=== PATIENT | male | born 1955 | race Two or more races ===

== ENCOUNTER 2018-02-16 17:04 | Inpatient (IN) | payer SELFPAY ==
[2018-02-16] MEDS ORDERED: Pneumococcal Polyvalent-23 Vaccine 0.5 ML SDV IM ONE (17:38)
[2018-02-16 19:18] LABS: CHLORIDE,CL 104 mmol/L (98-107); SODIUM,NA 137 mmol/L (136-148)
[2018-02-16] MEDS ORDERED: Acetaminophen 325 MG Tab PO PRN (19:42)
--- NOTE | 2018-02-16 19:57 | PCM.HP ---
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 He was directly admitted from [facility] after being seen in clinic by Dr. Allred for ampuation of necrotic left 2nd toe. - Related Data Home Medications: Home Meds Amoxicillin/Clavulanate K [Augmentin 500-125 MG] 1 tab PO Q12H 02/16/18 [History ] Aspirin [Halfprin] 81 mg PO DAILY 02/16/18 [History] Cetirizine [ZyrTEC] 10 mg PO DAILY 02/16/18 [History] Fish Oil/[place]-3 Fatty Acids [Fish Oil 1,000 MG] 1 cap PO TID 02/16/18 [History] Gabapentin [Neurontin] 800 mg PO QID 02/16/18 [History] Gluc HCl/Csa/Brian Hy/Hyalur Ac [Glucosamine Chondroitin] 1 each PO BID 02/16/18 [History] Ibuprofen 800 mg PO Q8H 02/16/18 [History] Insulin Aspart [Novolog] 60 unit SUBCUT DAILY 02/16/18 [History] Insulin Detemir [Levemir Flextouch] 22 units SUBCUT DAILY 02/16/18 [History] Liraglutide [Victoza] 0.2 ml SUBCUT DAILY 02/16/18 [History] Losartan [Cozaar] 50 mg PO DAILY 02/16/18 [History] Mupirocin Oint [Bactroban Oint] 1 applic TP TID 02/16/18 [History] atorvaSTATin [Lipitor] 20 mg PO DAILY 02/16/18 [History] Past Medical History Cardiovascular History: Reports: Hypertension Gastrointestinal History: Reports: Cirrhosis Musculoskeletal History: Reports: Amputation, Other (See Below) Other Musculoskeletal History: below right knee amputation Psychiatric History: Reports: Depression Endocrine/Metabolic History: Reports: Diabetes, Type II - Past Surgical History Musculoskeletal Surgical History: Reports: Amputation Social & Family History - Family History Oncologic: Reports: Liver, Lung - Tobacco Use Smoking Status *Q: Former Smoker Packs/Tins Daily: 1 Used Tobacco, but Quit: Yes Month/Year Tobacco Last Used: 2013 Tobacco Use Comment: quit smoking 4 years ago Second Hand Smoke Exposure: Yes - Caffeine Use Caffeine Use: Reports: Coffee - Recreational Drug Use Recreational Drug Use: No H&P Review of Systems - Review of Systems: Review Of Systems: ROS reveals no pertinent complaints other than HPI. Exam - Exam Exam: See Below - Vital Signs Vital Signs: Last Vital Signs Temp 36.9 C 02/16/18 17:15 Pulse 84 02/16/18 17:15 Resp 16 02/16/18 17:15 BP 156/94 H 02/16/18 17:15 Pulse Ox 97 02/16/18 17:15 Weight: 110.847 kg - Exam General: Alert, Oriented HEENT: Mucosa Moist & [place] Lungs: Clear to Auscultation, Normal Respiratory Effort Cardiovascular: Regular Rate, Regular Rhythm GI/Abdominal Exam: Soft, Non-Tender Extremities: Other (dry black left 2nd toe, no areas of purulence) Neurological: No: Focal Deficit - Patient Data Lab Results Last 24 hrs: Laboratory Results - last 24 hr 02/16/18 02/16/18 Range/Units 18:41 18:41 WBC 9.53 (4.0-11.0) K/uL RBC 4.71 (4.50-5.90) M/uL Hgb 13.5 (13.0-17.0) g/dL Hct 39.6 (38.0-50.0) % MCV 84.1 (80.0-98.0) fL MCH 28.7 (27.0-32.0) pg MCHC 34.1 (31.0-37.0) g/dL RDW Std Deviation 43.0 (28.0-62.0) fl RDW Coeff of Dino 14 (11.0-15.0) % Plt Count 224 (150-400) K/uL MPV 9.30 (7.40-12.00) fL Neut % (Auto) 70.3 (48.0-80.0) % Lymph % (Auto) 18.8 (16.0-40.0) % [place] % (Auto) 8.5 (0.0-15.0) % Eos % (Auto) 2.1 (0.0-7.0) % Baso % (Auto) 0.3 (0.0-1.5) % Neut # (Auto) 6.7 H (1.4-5.7) K/uL Lymph # (Auto) 1.8 (0.6-2.4) K/uL [place] # (Auto) 0.8 (0.0-0.8) K/uL Eos # (Auto) 0.2 (0.0-0.7) K/uL Baso # (Auto) 0.0 (0.0-0.1) K/uL Nucleated RBC % 0.0 /100WBC Nucleated RBCs # 0 K/uL Sodium 137 (136-148) mmol/L Potassium 4.1 (3.5-5.1) mmol/L Chloride 104 (98-107) mmol/L Carbon Dioxide 24.2 (21.0-32.0) mmol/L BUN 21 H (7.0-18.0) mg/dL Creatinine 1.2 (0.8-1.3) mg/dL Est Cr Clr Drug Dosing 66.24 mL/min Estimated GFR (MDRD) > 60.0 ml/min Glucose 180 H (74-106) mg/dL Calcium 8.4 L (8.5-10.1) mg/dL Total Bilirubin 0.6 (0.2-1.0) mg/dL AST 18 (15-37) IU/L ALT 25 (14-63) IU/L Alkaline Phosphatase 136 H (46-116) U/L Total Protein 7.3 (6.4-8.2) g/dL Albumin 2.9 L (3.4-5.0) g/dL Globulin 4.4 H (2.0-3.5) g/dL Albumin/Globulin Ratio 0.7 L (1.3-2.8) Result Diagrams: 02/16/18 18:41 02/16/18 18:41 Problem List Initiated/Reviewed/Updated: Yes Orders Last 24hrs: Active Orders 24 hr Category Date Time Status Patient Status [ADT] Routine ADT 02/16/18 19:42 Ordered Accu Check [Blood Glucose Check, Bedside] [RC] TIDAC Care 02/16/18 17:41 Active Oxygen Therapy [RC] PRN Care 02/16/18 19:42 Ordered Up ad Yennifer [RC] ASDIRECTED Care 02/16/18 19:42 Ordered VTE/DVT Education [RC] PER UNIT ROUTINE Care 02/16/18 19:42 Ordered Vital Signs [RC] Q4H Care 02/16/18 19:42 Ordered [place] Diet [DIET] Diet 02/17/18 Dinner Active Nothing per Oral After Midnight Diet [DIET] Diet 02/16/18 Dinner Ordered Foot Comp Min 3V Lt [CR] Stat Exams 02/16/18 19:15 Ordered BASIC METABOLIC PANEL,BMP [CHEM] AM Lab 02/17/18 05:11 Ordered CBC WITH AUTO DIFF [HEME] AM Lab 02/17/18 05:11 Ordered Acetaminophen [Tylenol] Med 02/16/18 19:42 Ordered 650 mg PO Q4H PRN Aspirin [Halfprin] Med 02/17/18 09:00 Ordered 81 mg PO DAILY Gabapentin [Neurontin] Med 02/17/18 00:00 Ordered 800 mg PO QID Heparin Sodium Med 02/16/18 19:45 Ordered 5,000 units SUBCUT Q8H Insulin Aspart [NovoLOG] Med 02/17/18 07:30 Ordered See Protocol SUBCUT TIDAC Insulin Detemir [Levemir] Med 02/17/18 09:00 Ordered 11 unit SUBCUT DAILY Losartan [Cozaar] Med 02/17/18 09:00 Ordered 50 mg PO DAILY Vancomycin Pharmacy to Dose [Pharmacy to Dose - Med 02/16/18 19:45 Ordered Vancomycin] 1 dose .XX ASDIRECTED atorvaSTATin [Lipitor] Med 02/17/18 09:00 Ordered 20 mg PO DAILY Sequential Compression Device [OM.PC] Per Unit Routine Oth 02/16/18 19:42 Ordered Resuscitation Status Routine Resus Stat 02/16/18 19:42 Ordered Medication Orders Acetaminophen (Tylenol) 650 mg PO Q4H PRN PRN Reason: Pain (Mild 1-3)/fever Aspirin (Halfprin) 81 mg PO DAILY JULISSA Atorvastatin Calcium (Lipitor) 20 mg PO DAILY JULISSA Gabapentin (Neurontin) 800 mg PO QID JULISSA Heparin Sodium (Porcine) (Heparin Sodium) 5,000 units SUBCUT Q8H JULISSA Insulin Aspart (Novolog) 0 unit SUBCUT TIDAC JULISSA; Protocol Insulin Detemir (Levemir) 11 unit SUBCUT DAILY JULISSA Losartan Potassium (Cozaar) 50 mg PO DAILY JULISSA Vancomycin HCl (Pharmacy To Dose - Vancomycin) 1 dose .XX ASDIRECTED JULISSA Assessment/Plan Comment:: 62 yo male with diabetic foot, admitted for amputation of left 2nd toe. Will treat with vancomycin. Will decrease levemir dose by half tomorrow as he will be NPO for surgery.
[2018-02-16] MEDS ORDERED: Vancomycin 1.5 GM in Sodium Chloride 0.9% 500 ML IV SCH (20:00)
--- NOTE | 2018-02-16 20:26 | PCM.CONS ---
H&P History of Present Illness - General Date of Service: 02/16/18 Admit Problem/Dx: Admission Diagnosis/Problem Admission Diagnosis/Problem Diabetic foot Source of Information: Patient History Limitations: Reports: No Limitations - History of Present Illness Onset of Symptoms: Reports: Gradual Duration of Symptoms: Reports: Chronic Location: Reports: Lower Extremity, Left Severity: Severe - Related Data Allergies/Adverse Reactions: Allergies Allergy/AdvReac Type Severity Reaction Status Date / Time No Known Allergies Allergy Verified 02/16/18 20:08 Home Medications: Home Meds Amoxicillin/Clavulanate K [Augmentin 500-125 MG] 1 tab PO Q12H 02/16/18 [History ] Aspirin [Halfprin] 81 mg PO DAILY 02/16/18 [History] Cetirizine [ZyrTEC] 10 mg PO DAILY 02/16/18 [History] Fish Oil/[place]-3 Fatty Acids [Fish Oil 1,000 MG] 1 cap PO TID 02/16/18 [History] Gabapentin [Neurontin] 800 mg PO QID 02/16/18 [History] Gluc HCl/Csa/Brian Hy/Hyalur Ac [Glucosamine Chondroitin] 1 each PO BID 02/16/18 [History] Ibuprofen 800 mg PO Q8H 02/16/18 [History] Insulin Aspart [Novolog] 60 unit SUBCUT DAILY 02/16/18 [History] Insulin Detemir [Levemir Flextouch] 20 units SUBCUT DAILY 02/16/18 [History] Liraglutide [Victoza] 0.2 ml SUBCUT DAILY 02/16/18 [History] Losartan [Cozaar] 50 mg PO DAILY 02/16/18 [History] Mupirocin Oint [Bactroban Oint] 1 applic TP TID 02/16/18 [History] atorvaSTATin [Lipitor] 20 mg PO DAILY 02/16/18 [History] Past Medical History Cardiovascular History: Reports: Hypertension Gastrointestinal History: Reports: Cirrhosis Musculoskeletal History: Reports: Amputation, Other (See Below) Other Musculoskeletal History: below right knee amputation Psychiatric History: Reports: Depression Endocrine/Metabolic History: Reports: Diabetes, Type II - Past Surgical History Musculoskeletal Surgical History: Reports: Amputation Social & Family History - Family History Oncologic: Reports: Liver, Lung - Tobacco Use Smoking Status *Q: Former Smoker Packs/Tins Daily: 1 Used Tobacco, but Quit: Yes Month/Year Tobacco Last Used: 2013 Tobacco Use Comment: quit smoking 4 years ago Second Hand Smoke Exposure: Yes - Caffeine Use Caffeine Use: Reports: Coffee - Recreational Drug Use Recreational Drug Use: No H&P Review of Systems - Review of Systems: Review Of Systems: See Below General: Reports: No Symptoms HEENT: Reports: No Symptoms Pulmonary: Reports: No Symptoms Cardiovascular: Reports: No Symptoms Gastrointestinal: Reports: No Symptoms Genitourinary: Reports: No Symptoms Musculoskeletal: Reports: No Symptoms Skin: Reports: No Symptoms Psychiatric: Reports: No Symptoms Neurological: Reports: No Symptoms Hematologic/Lymphatic: Reports: No Symptoms Immunologic: Reports: No Symptoms Exam - Exam Exam: See Below - Vital Signs Vital Signs: Last Vital Signs Temp 36.4 C 02/16/18 19:42 Pulse 81 02/16/18 19:42 Resp 20 02/16/18 19:42 BP 152/71 H 02/16/18 19:42 Pulse Ox 93 L 02/16/18 19:42 Weight: 110.847 kg - Exam General: Alert, Oriented, Cooperative Peripheral Pulses: 1+: Posterior Tibial (L), Dorsalis Pedis (L) Skin: Warm, Other (necrotic left 2nd toe distal aspect with severe malodor) - Patient Data Lab Results Last 24 hrs: Laboratory Results - last 24 hr 02/16/18 02/16/18 Range/Units 18:41 18:41 WBC 9.53 (4.0-11.0) K/uL RBC 4.71 (4.50-5.90) M/uL Hgb 13.5 (13.0-17.0) g/dL Hct 39.6 (38.0-50.0) % MCV 84.1 (80.0-98.0) fL MCH 28.7 (27.0-32.0) pg MCHC 34.1 (31.0-37.0) g/dL RDW Std Deviation 43.0 (28.0-62.0) fl RDW Coeff of Dino 14 (11.0-15.0) % Plt Count 224 (150-400) K/uL MPV 9.30 (7.40-12.00) fL Neut % (Auto) 70.3 (48.0-80.0) % Lymph % (Auto) 18.8 (16.0-40.0) % [place] % (Auto) 8.5 (0.0-15.0) % Eos % (Auto) 2.1 (0.0-7.0) % Baso % (Auto) 0.3 (0.0-1.5) % Neut # (Auto) 6.7 H (1.4-5.7) K/uL Lymph # (Auto) 1.8 (0.6-2.4) K/uL [place] # (Auto) 0.8 (0.0-0.8) K/uL Eos # (Auto) 0.2 (0.0-0.7) K/uL Baso # (Auto) 0.0 (0.0-0.1) K/uL Nucleated RBC % 0.0 /100WBC Nucleated RBCs # 0 K/uL Sodium 137 (136-148) mmol/L Potassium 4.1 (3.5-5.1) mmol/L Chloride 104 (98-107) mmol/L Carbon Dioxide 24.2 (21.0-32.0) mmol/L BUN 21 H (7.0-18.0) mg/dL Creatinine 1.2 (0.8-1.3) mg/dL Est Cr Clr Drug Dosing 66.24 mL/min Estimated GFR (MDRD) > 60.0 ml/min Glucose 180 H (74-106) mg/dL Calcium 8.4 L (8.5-10.1) mg/dL Total Bilirubin 0.6 (0.2-1.0) mg/dL AST 18 (15-37) IU/L ALT 25 (14-63) IU/L Alkaline Phosphatase 136 H (46-116) U/L Total Protein 7.3 (6.4-8.2) g/dL Albumin 2.9 L (3.4-5.0) g/dL Globulin 4.4 H (2.0-3.5) g/dL Albumin/Globulin Ratio 0.7 L (1.3-2.8) Result Diagrams: 02/16/18 18:41 02/16/18 18:41 Consult PN Assessment/Plan (1) Gangrene associated with type 2 diabetes mellitus SNOMED Code(s): 519678722, 024453556 Code(s): E11.52 - TYPE 2 DIABETES W DIABETIC PERIPHERAL ANGIOPATHY W GANGRENE Current Visit: Yes Assessment:: Left 2nd toe with necrotic changes and malodor - x-ray findings: I note erosion of distal phalanx of 2nd toe consistent with osteomyelitis. Problem List Initiated/Reviewed/Updated: Yes My Orders Last 24 Hours: My Active Orders 02/16/18 19:15 Foot Comp Min 3V Lt [CR] Stat 02/16/18 20:16 Verify Patient Consent Obtain [RC] ASDIRECTED Plan: 1. Surgery discussed with anesthesia and scheduled for tomorrow at noon 2. NPO past midnight 3. X-rays taken and viewed 4. Surgery will be amputation of 2nd toe left foot. Amputation either to PIPJ or to MPJ, to be decided intraoperatively. 5. Will follow.
--- NOTE | 2018-02-16 21:08 | PCM.PREANE ---
Preanesthetic Assessment - Anesthesia/Transfusion/Family Hx Anesthesia History: Prior Anesthesia Without Reaction Family History of Anesthesia Reaction: No Transfusion History: Prior Transfusion Without Reaction - Review of Systems General: No Symptoms Pulmonary: No Symptoms Cardiovascular: No Symptoms Gastrointestinal: No Symptoms Neurological: No Symptoms Other: Reports: None - Physical Assessment O2 Sat by Pulse Oximetry: 93 Respiratory Rate: 20 Vital Signs: Last Vital Signs Temp 97.6 F 02/16/18 19:42 Pulse 81 02/16/18 19:42 Resp 20 02/16/18 19:42 BP 152/71 H 02/16/18 19:42 Pulse Ox 93 L 02/16/18 19:42 Height: 5 ft 11 in Weight: 110.847 kg ASA Class: 4 Mental Status: Alert & Oriented x3 Airway Class: Mallampati = 2 Dentition: Reports: Normal Dentition Thyro-Mental Finger Breadths: 3 Mouth Opening Finger Breadths: 3 ROM/Head Extension: Full Lungs: Decreased Breath Sounds Cardiovascular: Regular Rate, Regular Rhythm, Other (Distant heart sounds) - Lab Values: Laboratory Last Values WBC 9.53 K/uL (4.0-11.0) 02/16/18 18:41 RBC 4.71 M/uL (4.50-5.90) 02/16/18 18:41 Hgb 13.5 g/dL (13.0-17.0) 02/16/18 18:41 Hct 39.6 % (38.0-50.0) 02/16/18 18:41 MCV 84.1 fL (80.0-98.0) 02/16/18 18:41 MCH 28.7 pg (27.0-32.0) 02/16/18 18:41 MCHC 34.1 g/dL (31.0-37.0) 02/16/18 18:41 RDW Std Deviation 43.0 fl (28.0-62.0) 02/16/18 18:41 RDW Coeff of Dino 14 % (11.0-15.0) 02/16/18 18:41 Plt Count 224 K/uL (150-400) 02/16/18 18:41 MPV 9.30 fL (7.40-12.00) 02/16/18 18:41 Neut % (Auto) 70.3 % (48.0-80.0) 02/16/18 18:41 Lymph % (Auto) 18.8 % (16.0-40.0) 02/16/18 18:41 [place] % (Auto) 8.5 % (0.0-15.0) 02/16/18 18:41 Eos % (Auto) 2.1 % (0.0-7.0) 02/16/18 18:41 Baso % (Auto) 0.3 % (0.0-1.5) 02/16/18 18:41 Neut # (Auto) 6.7 K/uL (1.4-5.7) H 02/16/18 18:41 Lymph # (Auto) 1.8 K/uL (0.6-2.4) 02/16/18 18:41 [place] # (Auto) 0.8 K/uL (0.0-0.8) 02/16/18 18:41 Eos # (Auto) 0.2 K/uL (0.0-0.7) 02/16/18 18:41 Baso # (Auto) 0.0 K/uL (0.0-0.1) 02/16/18 18:41 Nucleated RBC % 0.0 /100WBC 02/16/18 18:41 Nucleated RBCs # 0 K/uL 02/16/18 18:41 Sodium 137 mmol/L (136-148) 02/16/18 18:41 Potassium 4.1 mmol/L (3.5-5.1) 02/16/18 18:41 Chloride 104 mmol/L (98-107) 02/16/18 18:41 Carbon Dioxide 24.2 mmol/L (21.0-32.0) 02/16/18 18:41 BUN 21 mg/dL (7.0-18.0) H 02/16/18 18:41 Creatinine 1.2 mg/dL (0.8-1.3) 02/16/18 18:41 Est Cr Clr Drug Dosing 66.24 mL/min 02/16/18 18:41 Estimated GFR (MDRD) > 60.0 ml/min 02/16/18 18:41 Glucose 180 mg/dL (74-106) H 02/16/18 18:41 POC Glucose 169 mg/dL (60-110) H 02/16/18 17:43 Calcium 8.4 mg/dL (8.5-10.1) L 02/16/18 18:41 Total Bilirubin 0.6 mg/dL (0.2-1.0) 02/16/18 18:41 AST 18 IU/L (15-37) 02/16/18 18:41 ALT 25 IU/L (14-63) 02/16/18 18:41 Alkaline Phosphatase 136 U/L (46-116) H 02/16/18 18:41 Total Protein 7.3 g/dL (6.4-8.2) 02/16/18 18:41 Albumin 2.9 g/dL (3.4-5.0) L 02/16/18 18:41 Globulin 4.4 g/dL (2.0-3.5) H 02/16/18 18:41 Albumin/Globulin Ratio 0.7 (1.3-2.8) L 02/16/18 18:41 - Allergies Allergies/Adverse Reactions: Allergies Allergy/AdvReac Type Severity Reaction Status Date / Time No Known Allergies Allergy Verified 02/16/18 20:08 - Anesthesia Plan Free Text/Narrative:: Pt is a pleasant 62 y/o gentleman who provided the following health history on exam: - DM II - oral and insulin for treatment - HTN - PO treatment - Obesity - Previous alcoholic, denies any use in the last 18 years - + Liver cirrhosis diagnosed last year - Rt Below the knee amputation in early/mid 2016. 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 I have requested those records from [facility] for review. The patient also states he was scheduled to have another carotid U/S this week to make sure the disease in his Right carotid had not worsened. The patient may require Carotid U/S re-evaluation on this visit prior to surgery. - Last HgA1C 8.1 - 12/2017 - Diabetic Retinopathy - 02/16/2018 - EKG shows SR with abnormal R wave progression - 02/16/2018 - CXR shows no acute disease process I have spoken with Erika BAFFLE INSTALLER regarding the patients statements about his carotid U/S last year and she will re-order one for today prior to surgery. The anesthetic plan would be to have Dr Quiroga perform an ankle block and then for Anesthesia to provide light MAC anesthesia. - Acknowledgements Anesthesia Type Planned: Spinal, Regional Block, MAC Pt an Appropriate Candidate for the Planned Anesthesia: Yes Alternatives and Risks of Anesthesia Discussed w Pt/Guardian: Yes Pt/Guardian Understands and Agrees with Anesthesia Plan: Yes PreAnesthesia Questionnaire HEENT History: Reports: Hard of Hearing, Impaired Vision Cardiovascular History: Reports: Hypertension Respiratory History: Reports: Other (See Below) (Quit smoking in 2013) Gastrointestinal History: Reports: Cirrhosis Genitourinary History: Reports: None Musculoskeletal History: Reports: Amputation, Other (See Below) Other Musculoskeletal History: Rt below the knee amputation Neurological History: Reports: Neuropathy, Diabetic Psychiatric History: Reports: Depression Endocrine/Metabolic History: Reports: Diabetes, Type II, Obesity/BMI 30+ Hematologic History: Reports: None Immunologic History: Reports: None Oncologic (Cancer) History: Reports: None Dermatologic History: Reports: None - Infectious Disease History Infectious Disease History: Reports: None - Past Surgical History Musculoskeletal Surgical History: Reports: Amputation (Rt below the knee amputation) - SUBSTANCE USE Smoking Status *Q: Former Smoker Second Hand Smoke Exposure: Yes Recreational Drug Use History: No - HOME MEDS Home Medications: Home Meds Amoxicillin/Clavulanate K [Augmentin 500-125 MG] 1 tab PO Q12H 02/16/18 [History ] Aspirin [Halfprin] 81 mg PO DAILY 02/16/18 [History] Cetirizine [ZyrTEC] 10 mg PO DAILY 02/16/18 [History] Fish Oil/[place]-3 Fatty Acids [Fish Oil 1,000 MG] 1 cap PO TID 02/16/18 [History] Gabapentin [Neurontin] 800 mg PO QID 02/16/18 [History] Gluc HCl/Csa/Brian Hy/Hyalur Ac [Glucosamine Chondroitin] 1 each PO BID 02/16/18 [History] Ibuprofen 800 mg PO Q8H 02/16/18 [History] Insulin Aspart [Novolog] 60 unit SUBCUT DAILY 02/16/18 [History] Insulin Detemir [Levemir Flextouch] 20 units SUBCUT DAILY 02/16/18 [History] Liraglutide [Victoza] 0.2 ml SUBCUT DAILY 02/16/18 [History] Losartan [Cozaar] 50 mg PO DAILY 02/16/18 [History] Mupirocin Oint [Bactroban Oint] 1 applic TP TID 02/16/18 [History] atorvaSTATin [Lipitor] 20 mg PO DAILY 02/16/18 [History] - CURRENT (IN HOUSE) MEDS Current Meds: Current Medications Acetaminophen (Tylenol) 650 mg PO Q4H PRN PRN Reason: Pain (Mild 1-3)/fever Aspirin (Halfprin) 81 mg PO DAILY JULISSA Atorvastatin Calcium (Lipitor) 20 mg PO DAILY [facility] Gabapentin (Neurontin) 800 mg PO QID [facility] Heparin Sodium (Porcine) (Heparin Sodium) 5,000 units SUBCUT Q8H [facility] Vancomycin HCl 1 gm/Vancomycin HCl 500 mg/ Sodium Chloride 500 mls @ 333 mls/ hr IV Q12H [facility] Insulin Aspart (Novolog) 0 unit SUBCUT TIDAC [facility]; Protocol Insulin Detemir (Levemir) 11 unit SUBCUT DAILY [facility] Losartan Potassium (Cozaar) 50 mg PO DAILY [facility] Vancomycin HCl (Pharmacy To Dose - Vancomycin) 1 dose .XX ASDIRECTED [facility] Discontinued Medications Vancomycin HCl 1.5 gm/ Sodium (Chloride) 500 mls @ 333 mls/hr IV Q12H [facility] Last Admin: 02/16/18 21:04 Dose: Not Given Vancomycin HCl 1 gm/Vancomycin HCl 500 mg/ Sodium Chloride 500 mls @ 333 mls/ hr IV Q12H [facility] Pneumococcal Polyvalent Vaccine (Pneumovax 23) 0.5 ml IM .ONCE ONE Stop: 02/16/18 17:39
[2018-02-16] MEDS: Heparin Sodium 5,000 Units/ML Vial SUBCUT SCH (22:07)
[2018-02-16] MEDS: Gabapentin 800 MG Tab PO SCH (23:17)
[2018-02-17] MEDS: Sodium Chloride 0.9% 1,000 ML IV SCH ×3 (00:29→19:17)
[2018-02-17] MEDS: Insulin Aspart 100 Units/ML 3 ML Pen SUBCUT SCH ×4 (00:30→17:53)
[2018-02-17 05:54] LABS: CHLORIDE,CL 106 mmol/L (98-107); SODIUM,NA 138 mmol/L (136-148)
[2018-02-17] MEDS: Heparin Sodium 5,000 Units/ML Vial SUBCUT SCH ×2 (06:38→14:54)
[2018-02-17] MEDS: Gabapentin 800 MG Tab PO SCH ×4 (06:39→19:18)
[2018-02-17] MEDS ORDERED: Insulin Aspart 100 Units/ML 3 ML Pen SUBCUT SCH (07:30)
--- NOTE | 2018-02-17 09:04 | CR ---
EXAM DATE: 02/16/18 PATIENT'S AGE: 62 Patient: DANISHA VENTURA Facility: [place], [place] Site . Site : 1955 Study: XRay Extremity Left foot [id number]/2/[id number] 7:58:01 PM Ordering Physician: Renu Romero Final Report: INDICATION : Assess for osteomyelitis. TECHNIQUE: Three views. FINDINGS: Truncation of the distal tuft of the 2nd toe with soft tissue loss. Patchy lucency of the small remnant of the distal phalanx. Osteomyelitis not excluded. Mild degenerative spurring of the 1st metatarsal sesamoids. No other significant bone or joint finding in the foot. 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 Os calcis spared. Diffuse prominent atherosclerotic calcification. Dictated by Feliberto Jarrell MD @ Feb 16 2018 8:19PM (Electronic Signature) Report Signed by Proxy. CHRISTINA
--- NOTE | 2018-02-17 09:05 | CR ---
EXAM DATE: 02/16/18 PATIENT'S AGE: 62 Patient: DANISHA VENTURA Facility: [place], [place] Site . Site : 1955 Study: XRay Chest [id number]/2/[id number] 8:29:27 PM Ordering Physician: Renu Romero Final Report: Indication: Preoperative chest radiograph, diabetes, history of tobacco use Technique: Chest 1 view. Comparison: None Findings: Cardiovascular and mediastinum: Heart size and vasculature are normal in caliber and appearance. Mediastinum is within normal limits. Lungs and pleural space: Lungs are clear. No sign of infiltrate or mass. No sign of pleural effusion. No pneumothorax. Bones and soft tissues: No significant findings. Impression: No sign of acute disease. Dictated by Ida Rider MD @ Feb 16 2018 8:34PM (Electronic Signature) Report Signed by Proxy. CHRISTINA
--- NOTE | 2018-02-17 09:10 | US ---
EXAMINATION: Carotid US with claudio scale and duplex imaging. HISTORY: Carotid occlusion FINDINGS: Ultrasound examination of bilateral cervical carotid arteries was performed using claudio scale and dupl ex imaging. There is complete occlusion of left internal carotid artery proximally. Mild atheromatou s changes noted within the right internal carotid artery. Antegrade flow noted within the vertebrals . These are the peak velocities in cm per second (systole), right and left respectively, by a comma: CCA (common carotid artery) - 67, 66 ICA (internal carotid artery) - 73, 0 ECA (External carotid artery) - 76, 91 ICA/CCA systolic ratio Right - 1.1 Left - x IMPRESSION: 1. Occlusion of the proximal left internal carotid artery. 2. Mild atheromatous changes without significant stenosis noted within the right internal carotid art charlie.
[2018-02-17] MEDS: Losartan 50 MG Tab PO SCH (09:16)
[2018-02-17] MEDS: Aspirin 81 MG Tab.EC PO SCH (09:19)
[2018-02-17] MEDS: Insulin Detemir 100 Units/ML 3 ML Pen SUBCUT SCH (09:19)
[2018-02-17] MEDS: atorvaSTATin 20 MG Tab PO SCH (09:20)
--- NOTE | 2018-02-17 11:38 | PCM.PN ---
- General Info Date of Service: 02/17/18 - Review of Systems Systems Review Comment:: no new complaints. - Patient Data Vitals - Most Recent: Last Vital Signs Temp 37.1 C 02/17/18 08:00 Pulse 67 02/17/18 08:00 Resp 16 02/17/18 08:00 BP 173/84 H 02/17/18 09:16 Pulse Ox 95 02/17/18 08:00 Weight - Most Recent: 110.847 kg I&O - Last 24 Hours: Intake & Output 02/16/18 02/17/18 02/17/18 22:59 06:59 14:59 Intake Total 500 Output Total 300 Balance 200 Lab Results Last 24 Hours: Laboratory Results - last 24 hr 02/16/18 02/16/18 02/16/18 Range/Units 17:43 18:41 18:41 WBC 9.53 (4.0-11.0) K/uL RBC 4.71 (4.50-5.90) M/uL Hgb 13.5 (13.0-17.0) g/dL Hct 39.6 (38.0-50.0) % MCV 84.1 (80.0-98.0) fL MCH 28.7 (27.0-32.0) pg MCHC 34.1 (31.0-37.0) g/dL RDW Std Deviation 43.0 (28.0-62.0) fl RDW Coeff of Dino 14 (11.0-15.0) % Plt Count 224 (150-400) K/uL MPV 9.30 (7.40-12.00) fL Neut % (Auto) 70.3 (48.0-80.0) % Lymph % (Auto) 18.8 (16.0-40.0) % Bourbon % (Auto) 8.5 (0.0-15.0) % Eos % (Auto) 2.1 (0.0-7.0) % Baso % (Auto) 0.3 (0.0-1.5) % Neut # (Auto) 6.7 H (1.4-5.7) K/uL Lymph # (Auto) 1.8 (0.6-2.4) K/uL Bourbon # (Auto) 0.8 (0.0-0.8) K/uL Eos # (Auto) 0.2 (0.0-0.7) K/uL Baso # (Auto) 0.0 (0.0-0.1) K/uL Nucleated RBC % 0.0 /100WBC Nucleated RBCs # 0 K/uL Sodium 137 (136-148) mmol/L Potassium 4.1 (3.5-5.1) mmol/L Chloride 104 (98-107) mmol/L Carbon Dioxide 24.2 (21.0-32.0) mmol/L BUN 21 H (7.0-18.0) mg/dL Creatinine 1.2 (0.8-1.3) mg/dL Est Cr Clr Drug Dosing 66.24 mL/min Estimated GFR (MDRD) > 60.0 ml/min Glucose 180 H (74-106) mg/dL POC Glucose 169 H (60-110) mg/dL Calcium 8.4 L (8.5-10.1) mg/dL Total Bilirubin 0.6 (0.2-1.0) mg/dL AST 18 (15-37) IU/L ALT 25 (14-63) IU/L Alkaline Phosphatase 136 H (46-116) U/L Total Protein 7.3 (6.4-8.2) g/dL Albumin 2.9 L (3.4-5.0) g/dL Globulin 4.4 H (2.0-3.5) g/dL Albumin/Globulin Ratio 0.7 L (1.3-2.8) 02/17/18 02/17/18 02/17/18 Range/Units 00:08 05:08 05:08 WBC 7.47 (4.0-11.0) K/uL RBC 4.59 (4.50-5.90) M/uL Hgb 13.0 (13.0-17.0) g/dL Hct 38.3 (38.0-50.0) % MCV 83.4 (80.0-98.0) fL MCH 28.3 (27.0-32.0) pg MCHC 33.9 (31.0-37.0) g/dL RDW Std Deviation 41.7 (28.0-62.0) fl RDW Coeff of Dino 14 (11.0-15.0) % Plt Count 202 (150-400) K/uL MPV 9.10 (7.40-12.00) fL Neut % (Auto) 62.7 (48.0-80.0) % Lymph % (Auto) 23.6 (16.0-40.0) % Bourbon % (Auto) 9.5 (0.0-15.0) % Eos % (Auto) 3.9 (0.0-7.0) % Baso % (Auto) 0.3 (0.0-1.5) % Neut # (Auto) 4.7 (1.4-5.7) K/uL Lymph # (Auto) 1.8 (0.6-2.4) K/uL Bourbon # (Auto) 0.7 (0.0-0.8) K/uL Eos # (Auto) 0.3 (0.0-0.7) K/uL Baso # (Auto) 0.0 (0.0-0.1) K/uL Nucleated RBC % 0.0 /100WBC Nucleated RBCs # 0 K/uL Sodium 138 (136-148) mmol/L Potassium 4.0 (3.5-5.1) mmol/L Chloride 106 (98-107) mmol/L Carbon Dioxide 24.2 (21.0-32.0) mmol/L BUN 17 (7.0-18.0) mg/dL Creatinine 1.1 (0.8-1.3) mg/dL Est Cr Clr Drug Dosing 72.26 mL/min Estimated GFR (MDRD) > 60.0 ml/min Glucose 155 H (74-106) mg/dL POC Glucose 150 H (60-110) mg/dL Calcium 8.3 L (8.5-10.1) mg/dL Total Bilirubin (0.2-1.0) mg/dL AST (15-37) IU/L ALT (14-63) IU/L Alkaline Phosphatase (46-116) U/L Total Protein (6.4-8.2) g/dL Albumin (3.4-5.0) g/dL Globulin (2.0-3.5) g/dL Albumin/Globulin Ratio (1.3-2.8) 02/17/18 Range/Units 05:55 WBC (4.0-11.0) K/uL RBC (4.50-5.90) M/uL Hgb (13.0-17.0) g/dL Hct (38.0-50.0) % MCV (80.0-98.0) fL MCH (27.0-32.0) pg MCHC (31.0-37.0) g/dL RDW Std Deviation (28.0-62.0) fl RDW Coeff of Dino (11.0-15.0) % Plt Count (150-400) K/uL MPV (7.40-12.00) fL Neut % (Auto) (48.0-80.0) % Lymph % (Auto) (16.0-40.0) % Bourbon % (Auto) (0.0-15.0) % Eos % (Auto) (0.0-7.0) % Baso % (Auto) (0.0-1.5) % Neut # (Auto) (1.4-5.7) K/uL Lymph # (Auto) (0.6-2.4) K/uL Bourbon # (Auto) (0.0-0.8) K/uL Eos # (Auto) (0.0-0.7) K/uL Baso # (Auto) (0.0-0.1) K/uL Nucleated RBC % /100WBC Nucleated RBCs # K/uL Sodium (136-148) mmol/L Potassium (3.5-5.1) mmol/L Chloride (98-107) mmol/L Carbon Dioxide (21.0-32.0) mmol/L BUN (7.0-18.0) mg/dL Creatinine (0.8-1.3) mg/dL Est Cr Clr Drug Dosing mL/min Estimated GFR (MDRD) ml/min Glucose (74-106) mg/dL POC Glucose 150 H (60-110) mg/dL Calcium (8.5-10.1) mg/dL Total Bilirubin (0.2-1.0) mg/dL AST (15-37) IU/L ALT (14-63) IU/L Alkaline Phosphatase (46-116) U/L Total Protein (6.4-8.2) g/dL Albumin (3.4-5.0) g/dL Globulin (2.0-3.5) g/dL Albumin/Globulin Ratio (1.3-2.8) Med Orders - Current: Current Medications Acetaminophen (Tylenol) 650 mg PO Q4H PRN PRN Reason: Pain (Mild 1-3)/fever Aspirin (Halfprin) 81 mg PO DAILY [facility] Last Admin: 02/17/18 09:19 Dose: Not Given Atorvastatin Calcium (Lipitor) 20 mg PO DAILY [facility] Last Admin: 02/17/18 09:20 Dose: Not Given Gabapentin (Neurontin) 800 mg PO QID [facility] Last Admin: 02/17/18 06:39 Dose: Not Given Heparin Sodium (Porcine) (Heparin Sodium) 5,000 units SUBCUT Q8H [facility] Last Admin: 02/17/18 06:38 Dose: Not Given Vancomycin HCl 1 gm/Vancomycin HCl 500 mg/ Sodium Chloride 500 mls @ 333 mls/ hr IV Q12H [facility] Last Admin: 02/17/18 08:21 Dose: 333 mls/hr Sodium Chloride (Normal Saline) 1,000 mls @ 100 mls/hr IV ASDIRECTED [facility] Last Admin: 02/17/18 08:20 Dose: 100 mls/hr Insulin Aspart (Novolog) 0 unit SUBCUT Q6H [facility]; Protocol Last Admin: 02/17/18 06:39 Dose: Not Given Insulin Detemir (Levemir) 11 unit SUBCUT DAILY [facility] Last Admin: 02/17/18 09:19 Dose: Not Given Losartan Potassium (Cozaar) 50 mg PO DAILY [facility] Last Admin: 02/17/18 09:16 Dose: 50 mg Vancomycin HCl (Pharmacy To Dose - Vancomycin) 1 dose .XX ASDIRECTED [facility] Discontinued Medications Vancomycin HCl 1.5 gm/ Sodium (Chloride) 500 mls @ 333 mls/hr IV Q12H [facility] Last Admin: 02/16/18 21:04 Dose: Not Given Vancomycin HCl 1 gm/Vancomycin HCl 500 mg/ Sodium Chloride 500 mls @ 333 mls/ hr IV Q12H [facility] Last Admin: 02/16/18 21:53 Dose: Not Given Insulin Aspart (Novolog) 0 unit SUBCUT TIDAC [facility]; Protocol Pneumococcal Polyvalent Vaccine (Pneumovax 23) 0.5 ml IM .ONCE ONE Stop: 02/16/18 17:39 Last Admin: 02/16/18 22:01 Dose: 0.5 ml - Exam General: Alert, Oriented Cardiovascular: Regular Rate, Regular Rhythm GI/Abdominal Exam: Normal Bowel Sounds, Soft, Non-Tender Skin: Warm, Dry, Intact - Problem List Review Problem List Initiated/Reviewed/Updated: Yes - My Orders Last 24 Hours: My Active Orders 02/16/18 19:42 Patient Status [ADT] Routine Oxygen Therapy [RC] PRN Up ad Yennifer [RC] ASDIRECTED VTE/DVT Education [RC] PER UNIT ROUTINE Vital Signs [RC] Q4H Acetaminophen [Tylenol] 650 mg PO Q4H PRN Sequential Compression Device [OM.PC] Per Unit Routine Resuscitation Status Routine 02/16/18 20:00 Vancomycin Pharmacy to Dose [Pharmacy to Dose - Vancomycin] 1 dose .XX ASDIRECTED 02/16/18 22:00 Heparin Sodium 5,000 units SUBCUT Q8H 02/16/18 Dinner Nothing per Oral After Midnight Diet [DIET] 02/17/18 00:00 Gabapentin [Neurontin] 800 mg PO QID Insulin Aspart [NovoLOG] See Protocol SUBCUT Q6H 02/17/18 00:15 Sodium Chloride 0.9% [Normal Saline] 1,000 ml IV ASDIRECTED 02/17/18 09:00 Aspirin [Halfprin] 81 mg PO DAILY Insulin Detemir [Levemir] 11 unit SUBCUT DAILY Losartan [Cozaar] 50 mg PO DAILY atorvaSTATin [Lipitor] 20 mg PO DAILY 02/17/18 Dinner [employer] Diet [DIET] - Plan Plan:: 62 yo male with diabetic foot, admitted for amputation of left 2nd toe. Will continue vancomycin. Levemir decreased by half as he is NPO for surgery.
[2018-02-17] MEDS ORDERED: ceFAZolin 1 GM Vial ONE (12:32)
[2018-02-17] MEDS ORDERED: Bupivacaine 0.5% 10 ML SDV ONE (12:32)
[2018-02-17] MEDS ORDERED: Lidocaine 1% 20 ML MDV ONE (12:38)
[2018-02-17] MEDS ORDERED: fentaNYL 100 MCG/2 ML SDV ONE (12:41)
[2018-02-17] MEDS ORDERED: Propofol 200 MG/20 ML SDV ONE (12:41)
[2018-02-17] MEDS ORDERED: Midazolam 1 MG/ML 2 ML SDV ONE (12:41)
--- NOTE | 2018-02-17 13:22 | PN ---
Preoperative Progress Note PREOPERATIVE DIAGNOSIS: Gangrene, second toe, left foot. PLANNED PROCEDURE: Amputation of second toe, left foot. Consent signed in the chart. ANESTHESIA: MAC with a local block. The patient confirms n.p.o. since midnight. History and physical was completed by Dr. Sears with no contraindications to surgery. ALLERGIES: None. MEDICATIONS: Currently: 1. Acetaminophen 650 mg p.o. q.4 hours p.r.n. 2. Aspirin 81 mg p.o. daily. 3. Atorvastatin calcium 20 mg p.o. daily. 4. Gabapentin 800 mg p.o. q.i.d. 5. Heparin sodium 5000 units subcutaneous q.8 hours scheduled, but not given. 6. Insulin detemir 11 units subcutaneously daily. 7. Losartan potassium 50 mg p.o. daily. 8. Vancomycin, received one dose 1 g earlier this morning. 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 LABORATORY DATA: White blood cell 7.47, red blood cell 4.59, hemoglobin 13.0, hematocrit 38.3, platelets 202. Sodium 138, potassium 4.0, chloride 106, CO2 of 24.2, BUN 17, creatinine 1.1, glucose 155. EKG shows sinus rhythm with abnormal R-wave progression. Chest x-ray shows no acute disease process. The patient presented for amputation of left second toe surgery today. No contraindications to surgery noted. No guarantees given or implied. I did discuss with the patient that if intraoperatively I see that a portion of the proximal second toe can be saved, then partial amputation maybe performed instead of full amputation of the second toe of the left foot. However, most likely, this will be a full amputation of the second toe to the level of the metatarsophalangeal joint. All patient's questions were answered. No guarantees given or implied. SCARLET / DIPESH /[id number]
--- NOTE | 2018-02-17 14:10 | PCM.POSTAN ---
POST ANESTHESIA ASSESSMENT - MENTAL STATUS Mental Status: Alert, Oriented - RESPIRATORY Respiratory Status: Respiratory Rate WNL, Airway Patent, O2 Saturation Stable - CARDIOVASCULAR CV Status: Pulse Rate WNL, Blood Pressure Stable - GASTROINTESTINAL GI Status: No Symptoms - POST OP HYDRATION Hydration Status: Adequate & Stable
--- NOTE | 2018-02-17 14:33 | PCM48HPAN ---
Post Anesthesia Note - EVALUATION WITHIN 48HRS OF ANESTHETIC Vital Signs in Normal Range: Yes Patient Participated in Evaluation: Yes Respiratory Function Stable: Yes Airway Patent: Yes Cardiovascular Function Stable: Yes Hydration Status Stable: Yes Pain Control Satisfactory: Yes Nausea and Vomiting Control Satisfactory: Yes Mental Status Recovered: Yes Resp Rate: 16 Blood Pressure: 173/84
--- NOTE | 2018-02-17 15:37 | PCM.OPNOTE ---
- General Post-Op/Procedure Note Date of Surgery/Procedure: 02/17/18 Operative Procedure(s): amputation second toe left foot Findings: consistent with diagnosis Pre Op Diagnosis: gangrene second toe left foot Post-Op Diagnosis: gangrene second toe left foot Anesthesia Technique: Local, MAC Primary Surgeon: Sean Allred Anesthesia Provider: Andrey Lehman Pathology: second toe left foot EBL in mLs: 10 Complications: none Condition: Good Free Text/Narrative:: Intake & Output 02/17/18 02/17/18 02/17/18 06:59 14:59 22:59 Intake Total 500 Output Total 300 Balance 200 swab cultures taken at end of procedure materials: 3-0 vicryl 4-0 prolene injectables: 10 ml of 1:1 mix of 1% lidocaine plain and 0.5% marcaine plain of which 7 cc was injected preoperatively and 3 cc at the end of the procedure.
--- NOTE | 2018-02-18 01:10 | OR ---
SURGEON: Sean Allred DPM DATE OF PROCEDURE: 02/17/2018 IDENTIFICATION: The patient is a 62-year-old male. PREOPERATIVE DIAGNOSIS: Gangrene, 2nd toe, left foot. POSTOPERATIVE DIAGNOSIS: Gangrene, 2nd toe, left foot. OPERATIVE PROCEDURE: Amputation of 2nd toe, left foot. ANESTHESIA: MAC with a local block consisting of 7 mL of 1:1 mixture of 1% lidocaine plain and 0.5% Marcaine plain. PATHOLOGY: Second toe, left foot. MICROBIOLOGY: Swab cultures were taken at the conclusion of the procedure. HEMOSTASIS: None. COMPLICATIONS: None seen. INJECTABLES: In addition to the 7 mL of local anesthesia injected prior to the beginning of the procedure, the remaining 3 mL of 1:1 mixture of 1% lidocaine plain and 0.5% Marcaine plain were injected about the left foot 2nd metatarsal head area at the conclusion of the procedure. MATERIALS: 3-0 Vicryl, 4-0 nylon. JUSTIFICATION FOR THE PROCEDURE: The patient is a 62-year-old male with a long history of diabetes and related complications. The patient has prior history of right below-knee amputation. The patient was first seen by me at the [facility] last week and at that time, he was placed on oral antibiotics and scheduled for followup with a nurse at [facility] for close monitoring of any potential worsening of this condition. The nurse did call me yesterday when she saw patient and related to me that there was a strong malodor and necrotic changes progressing on the 2nd toe of the left foot. At that time, I directed her to instruct the patient to come directly to [facility] in [place] and I coordinated with Dr. Sears and Mojgan Acosta, nurse practitioner, to have the patient admitted. I saw the patient yesterday and made the determination that 2nd toe amputation is required due to the necrotic changes of the 2nd toe of the left foot and the severe degradation of the skin and soft tissue of the 2nd toe of the left foot. X-rays I ordered last night are consistent in my view with osteomyelitis at least of the distal phalanx of the 2nd toe. However, with the loss of healthy skin and soft tissue, preservation of the toe is not possible. I discussed with the patient that if there was any realistic chance to preserve a portion of the 2nd toe proximally, that I would limit the amputation to only the distal aspect. However, I cautioned him that most likely, amputation of the entire 2nd toe of left foot would be required, and indeed, this proved to be the case. All patient questions were answered. No guarantees expressed or implied, and the patient was cleared for surgery by Dr. Sears. PROCEDURE IN DETAIL: The patient was brought from his room to the operating room, placed on the operating table in a supine position, at which time, an aseptic scrub and drape was performed about the left lower extremity. The procedure began with an injection of 7 mL of 1:1 mixture of 0.5% Marcaine plain and 1% lidocaine plain. Marking pen was used to plan the racket mouth type of incision about the 2nd toe of the left foot, and incision was made and deepened to the level of bone and the middle and distal phalanx and surrounding soft tissue and skin were disarticulated at the proximal interphalangeal joint with an attempt made to preserve enough skin and soft tissue to allow closure if the proximal phalanx was preserved. However, there was simply no adequate skin and soft tissue that would allow for such closure and I proceeded to amputate the proximal phalanx by disarticulating it at the level of the metatarsophalangeal joint. The 2nd toe was placed in a sterile specimen container and sent to pathology for gross examination. The area was copiously irrigated with normal sterile saline and reinspected. The 2nd metatarsal head appeared to be unaffected by any infection. Swab cultures were taken at this point and closure commenced with the deep and subcutaneous tissue reapproximated with 3-0 Vicryl suture, followed by reapproximation of the superficial skin with 4-0 Prolene suture. The remaining 3 mL of 1:1 mixture of 1% lidocaine plain and 0.5% Marcaine plain were then infiltrated about the surgical site, and Betadine-soaked Xeroform gauze followed by fluff gauze and a Kerlix roll were placed about the patient's left foot, and postoperative x-ray was taken verifying amputation of the 2nd toe of the left foot at the level of the metatarsophalangeal joint. The Kerlix roll was then completed and secured with a 4-inch Demond bandage. The patient tolerated the anesthesia and the procedure well with no complications noted, and after a brief stay in recovery room, was transported back to his room in the [facility]. I will continue to follow this patient. As there were no signs of active infection following the amputation of the 2nd toe, I am hopeful that the patient will be stable and okay for discharge within the next 1 to 2 days pending results of further labs. SCARLET LANDON /[id number] MTDD
[2018-02-18] MEDS: Gabapentin 800 MG Tab PO SCH ×3 (06:18→11:58)
[2018-02-18] MEDS: Sodium Chloride 0.9% 1,000 ML IV SCH (07:25)
[2018-02-18] MEDS: Insulin Aspart 100 Units/ML 3 ML Pen SUBCUT SCH ×2 (07:50→11:59)
[2018-02-18] MEDS: atorvaSTATin 20 MG Tab PO SCH ×2 (08:52→09:14)
[2018-02-18] MEDS: Aspirin 81 MG Tab.EC PO SCH (08:52)
[2018-02-18] MEDS: Losartan 50 MG Tab PO SCH (08:52)
[2018-02-18] MEDS: Insulin Detemir 100 Units/ML 3 ML Pen SUBCUT SCH (08:55)
--- NOTE | 2018-02-18 11:34 | PCM.PN ---
- General Info Date of Service: 02/18/18 - Review of Systems Systems Review Comment:: pain controlled, ambulating well - Patient Data Vitals - Most Recent: Last Vital Signs Temp 37.2 C 02/18/18 08:00 Pulse 73 02/18/18 08:00 Resp 16 02/18/18 08:00 BP 143/69 H 02/18/18 08:52 Pulse Ox 96 02/18/18 08:00 Weight - Most Recent: 110.847 kg I&O - Last 24 Hours: Intake & Output 02/17/18 02/18/18 02/18/18 22:59 06:59 14:59 Intake Total 1838 700 Output Total 1350 1600 Balance 488 -900 Lab Results Last 24 Hours: Laboratory Results - last 24 hr 02/17/18 02/17/18 02/18/18 Range/Units 10:58 16:43 06:19 POC Glucose 152 H 176 H 153 H (60-110) mg/dL Vancomycin Trough (5.0-10.0) ug/mL 02/18/18 02/18/18 Range/Units 07:00 08:45 POC Glucose 225 H (60-110) mg/dL Vancomycin Trough 11.9 H (5.0-10.0) ug/mL [place] Results Last 24 Hours: Microbiology 02/17/18 13:44 Gram Stain - Preliminary Toe, Left - Left Second Med Orders - Current: Current Medications Acetaminophen (Tylenol) 650 mg PO Q4H PRN PRN Reason: Pain (Mild 1-3)/fever Aspirin (Halfprin) 81 mg PO DAILY [facility] Last Admin: 02/18/18 08:52 Dose: 81 mg Atorvastatin Calcium (Lipitor) 20 mg PO DAILY [facility] Last Admin: 02/18/18 09:14 Dose: Not Given Gabapentin (Neurontin) 800 mg PO QID [facility] Last Admin: 02/18/18 06:18 Dose: 800 mg Heparin Sodium (Porcine) (Heparin Sodium) 5,000 units SUBCUT Q8H [facility] Vancomycin HCl 1 gm/Vancomycin HCl 500 mg/ Sodium Chloride 500 mls @ 333 mls/ hr IV Q12H [facility] Last Admin: 02/18/18 08:46 Dose: 333 mls/hr Sodium Chloride (Normal Saline) 1,000 mls @ 100 mls/hr IV ASDIRECTED [facility] Last Admin: 02/18/18 07:25 Dose: 100 mls/hr Insulin Aspart (Novolog) 0 unit SUBCUT TIDAC [facility]; Protocol Last Admin: 02/18/18 07:50 Dose: 2 units Insulin Detemir (Levemir) 11 unit SUBCUT DAILY [facility] Last Admin: 02/18/18 08:55 Dose: 11 units Losartan Potassium (Cozaar) 50 mg PO DAILY [facility] Last Admin: 02/18/18 08:52 Dose: 50 mg Vancomycin HCl (Pharmacy To Dose - Vancomycin) 1 dose .XX ASDIRECTED [facility] Discontinued Medications Bupivacaine HCl (Sensorcaine-Mpf 0.5%) Confirm Administered Dose 20 ml .ROUTE .STK-MED ONE Stop: 02/17/18 12:33 Cefazolin Sodium (Ancef) Confirm Administered Dose 1 gm .ROUTE .STK-MED ONE Stop: 02/17/18 12:33 Fentanyl (Sublimaze) Confirm Administered Dose 100 mcg .ROUTE .STK-MED ONE Stop: 02/17/18 12:42 Gabapentin (Neurontin) 800 mg PO QID [facility] Last Admin: 02/17/18 12:00 Dose: Not Given Heparin Sodium (Porcine) (Heparin Sodium) 5,000 units SUBCUT Q8H [facility] Last Admin: 02/17/18 14:54 Dose: Not Given Vancomycin HCl 1.5 gm/ Sodium (Chloride) 500 mls @ 333 mls/hr IV Q12H [facility] Last Admin: 02/16/18 21:04 Dose: Not Given Vancomycin HCl 1 gm/Vancomycin HCl 500 mg/ Sodium Chloride 500 mls @ 333 mls/ hr IV Q12H [facility] Last Admin: 02/16/18 21:53 Dose: Not Given Insulin Aspart (Novolog) 0 unit SUBCUT TIDAC [facility]; Protocol Insulin Aspart (Novolog) 0 unit SUBCUT Q6H [facility]; Protocol Last Admin: 02/17/18 17:53 Dose: 2 units Lidocaine HCl (Xylocaine 1%) Confirm Administered Dose 40 ml .ROUTE .STK-MED ONE Stop: 02/17/18 12:39 Midazolam HCl (Versed 1 Mg/Ml) Confirm Administered Dose 2 mg .ROUTE .STK-MED ONE Stop: 02/17/18 12:42 Pneumococcal Polyvalent Vaccine (Pneumovax 23) 0.5 ml IM .ONCE ONE Stop: 02/16/18 17:39 Last Admin: 02/16/18 22:01 Dose: 0.5 ml Propofol (Diprivan 20 Ml) Confirm Administered Dose 200 mg .ROUTE .STK-MED ONE Stop: 02/17/18 12:42 - Exam General: Alert, Oriented Lungs: Clear to Auscultation, Normal Respiratory Effort Cardiovascular: Regular Rate, Regular Rhythm GI/Abdominal Exam: Normal Bowel Sounds, Soft, Non-Tender - Problem List Review Problem List Initiated/Reviewed/Updated: Yes - My Orders Last 24 Hours: My Active Orders 02/17/18 15:00 Gabapentin [Neurontin] 800 mg PO QID 02/17/18 22:44 Accu Check [Blood Glucose Check, Bedside] [RC] TIDAC 02/17/18 Dinner [employer] Diet [DIET] 02/18/18 07:30 Insulin Aspart [NovoLOG] See Protocol SUBCUT [facility]IDAC - Plan Plan:: 62 yo male with diabetic foot,s/p amputation of left 2nd toe. Dr. Allred is consulted
--- NOTE | 2018-02-18 13:26 | PCM.CONSN ---
- General Info Date of Service: 02/18/18 Admission Dx/Problem (Free Text): Admission Diagnosis/Problem Admission Diagnosis/Problem Diabetic foot Subjective Update: Patient resting comfortably with no complaint of pain status post 1 day after amputation of second toe left foot. Patient states he noticed the swelling on his foot is down. Functional Status: Reports: Pain Controlled - Review of Systems General: Reports: No Symptoms HEENT: Reports: No Symptoms Pulmonary: Reports: No Symptoms Cardiovascular: Reports: No Symptoms Gastrointestinal: Reports: No Symptoms Genitourinary: Reports: No Symptoms Musculoskeletal: Reports: No Symptoms Skin: Reports: No Symptoms Neurological: Reports: No Symptoms Psychiatric: Reports: No Symptoms - Patient Data Vitals - Most Recent: Last Vital Signs Temp 37.2 C 02/18/18 08:00 Pulse 73 02/18/18 08:00 Resp 16 02/18/18 08:00 BP 143/69 H 02/18/18 08:52 Pulse Ox 96 02/18/18 08:00 Weight - Most Recent: 110.847 kg I&O - Last 24 Hours: Intake & Output 02/17/18 02/18/18 02/18/18 22:59 06:59 14:59 Intake Total 1838 700 Output Total 1350 1600 Balance 488 -900 Lab Results Last 24 Hours: Laboratory Results - last 24 hr 02/17/18 02/17/18 02/18/18 Range/Units 10:58 16:43 06:19 POC Glucose 152 H 176 H 153 H (60-110) mg/dL Vancomycin Trough (5.0-10.0) ug/mL 02/18/18 02/18/18 02/18/18 Range/Units 07:00 08:45 11:52 POC Glucose 225 H 185 H (60-110) mg/dL Vancomycin Trough 11.9 H (5.0-10.0) ug/mL [place] Results Last 24 Hours: Microbiology 02/17/18 13:44 Gram Stain - Preliminary Toe, Left - Left Second Med Orders - Current: Current Medications Acetaminophen (Tylenol) 650 mg PO Q4H PRN PRN Reason: Pain (Mild 1-3)/fever Aspirin (Halfprin) 81 mg PO DAILY [facility] Last Admin: 02/18/18 08:52 Dose: 81 mg Atorvastatin Calcium (Lipitor) 20 mg PO DAILY [facility] Last Admin: 02/18/18 09:14 Dose: Not Given Gabapentin (Neurontin) 800 mg PO QID [facility] Last Admin: 02/18/18 11:58 Dose: 800 mg Heparin Sodium (Porcine) (Heparin Sodium) 5,000 units SUBCUT Q8H [facility] Vancomycin HCl 1 gm/Vancomycin HCl 500 mg/ Sodium Chloride 500 mls @ 333 mls/ hr IV Q12H [facility] Last Admin: 02/18/18 08:46 Dose: 333 mls/hr Sodium Chloride (Normal Saline) 1,000 mls @ 100 mls/hr IV ASDIRECTED [facility] Last Admin: 02/18/18 07:25 Dose: 100 mls/hr Insulin Aspart (Novolog) 0 unit SUBCUT TIDAC [facility]; Protocol Last Admin: 02/18/18 11:59 Dose: 2 units Insulin Detemir (Levemir) 11 unit SUBCUT DAILY [facility] Last Admin: 02/18/18 08:55 Dose: 11 units Losartan Potassium (Cozaar) 50 mg PO DAILY [facility] Last Admin: 02/18/18 08:52 Dose: 50 mg Vancomycin HCl (Pharmacy To Dose - Vancomycin) 1 dose .XX ASDIRECTED [facility] Discontinued Medications Bupivacaine HCl (Sensorcaine-Mpf 0.5%) Confirm Administered Dose 20 ml .ROUTE .STK-MED ONE Stop: 02/17/18 12:33 Cefazolin Sodium (Ancef) Confirm Administered Dose 1 gm .ROUTE .STK-MED ONE Stop: 02/17/18 12:33 Fentanyl (Sublimaze) Confirm Administered Dose 100 mcg .ROUTE .STK-MED ONE Stop: 02/17/18 12:42 Gabapentin (Neurontin) 800 mg PO QID [facility] Last Admin: 02/17/18 12:00 Dose: Not Given Heparin Sodium (Porcine) (Heparin Sodium) 5,000 units SUBCUT Q8H [facility] Last Admin: 02/17/18 14:54 Dose: Not Given Vancomycin HCl 1.5 gm/ Sodium (Chloride) 500 mls @ 333 mls/hr IV Q12H [facility] Last Admin: 02/16/18 21:04 Dose: Not Given Vancomycin HCl 1 gm/Vancomycin HCl 500 mg/ Sodium Chloride 500 mls @ 333 mls/ hr IV Q12H [facility] Last Admin: 02/16/18 21:53 Dose: Not Given Insulin Aspart (Novolog) 0 unit SUBCUT TIDAC [facility]; Protocol Insulin Aspart (Novolog) 0 unit SUBCUT Q6H [facility]; Protocol Last Admin: 02/17/18 17:53 Dose: 2 units Lidocaine HCl (Xylocaine 1%) Confirm Administered Dose 40 ml .ROUTE .STK-MED ONE Stop: 02/17/18 12:39 Midazolam HCl (Versed 1 Mg/Ml) Confirm Administered Dose 2 mg .ROUTE .STK-MED ONE Stop: 02/17/18 12:42 Pneumococcal Polyvalent Vaccine (Pneumovax 23) 0.5 ml IM .ONCE ONE Stop: 02/16/18 17:39 Last Admin: 02/16/18 22:01 Dose: 0.5 ml Propofol (Diprivan 20 Ml) Confirm Administered Dose 200 mg .ROUTE .STK-MED ONE Stop: 02/17/18 12:42 - Exam Extremities: Other Peripheral Pulses: 0: Dorsalis Pedis (L), 1+: Posterior Tibial (L) Skin: Warm Wound/Incisions: Healing Well, Dressing Dry and Intact, Drainage (no active drainage though inner dressings did have moderate amount of dried blood), Erythema Improving Consult PN Assessment/Plan POD#: 1 Procedures: status post amputation second toe left foot on 02/17/18 (1) Gangrene associated with type 2 diabetes mellitus SNOMED Code(s): 404604025, 020178486 Code(s): E11.52 - 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 Problem List Initiated/Reviewed/Updated: Yes My Orders Last 24 Hours: My Active Orders 02/17/18 13:44 CULTURE ANAEROBIC [RM] Routine CULTURE WOUND [RM] Routine GRAM STAIN [RM] Routine 02/17/18 14:05 Fluoro Up To 1Hr [CR] Routine Plan: 1. Dressing change performed at site of amputation of 2nd toe left foot. 2. I discussed and patient understands he must followup every 2 to 3 days with S caregivers with whom he is very familiar, every 2 to 3 days for dressing change. I will be in touch with his nurse from [facility], regarding followup care. 3. I will next see patient at [facility] on March 11, 2018. 4. Patient is OK to discharge from Podiatry standpoint. I believe that his infection was largely limited to the distal two thirds of the second toe that underwent amputation. Labs are encouraging and I do not believe patient is currently infected. I suggest patient be discharged on oral antibiotics for 14 days, as a preventative measure against any potential infection. Cephalexin should suffice, but I defer to Dr. Sears.
[2018-02-18] MEDS ORDERED: Heparin Sodium 5,000 Units/ML Vial SUBCUT SCH (14:00)
[2018-02-18] MEDS ORDERED: Cephalexin 500 MG Cap PO SCH (21:00)
--- NOTE | 2018-02-19 07:13 | PCM.DCSUM1 ---
Discharge Summary - Discharge Data Discharge Disposition: Home, Self-Care 01 Condition: Good - Patient Summary/Data Operative Procedure(s) Performed: amputation second toe left foot - Discharge Plan Prescriptions/Med Rec: Cephalexin 500 mg PO BID #28 capsule Home Medications: Home Meds Amoxicillin/Clavulanate K [Augmentin 500-125 MG] 1 tab PO Q12H 02/16/18 [History ] Aspirin [Halfprin] 81 mg PO DAILY 02/16/18 [History] Cetirizine [ZyrTEC] 10 mg PO DAILY 02/16/18 [History] Fish Oil/Ehrhardt-3 Fatty Acids [Fish Oil 1,000 MG] 1 cap PO TID 02/16/18 [History] Gabapentin [Neurontin] 800 mg PO QID 02/16/18 [History] Gluc HCl/Csa/Brian Hy/Hyalur Ac [Glucosamine Chondroitin] 1 each PO BID 02/16/18 [History] Ibuprofen 800 mg PO Q8H 02/16/18 [History] Insulin Aspart [Novolog] 60 unit SUBCUT DAILY 02/16/18 [History] Insulin Detemir [Levemir Flextouch] 20 units SUBCUT DAILY 02/16/18 [History] Liraglutide [Victoza] 0.2 ml SUBCUT DAILY 02/16/18 [History] Losartan [Cozaar] 50 mg PO DAILY 02/16/18 [History] Mupirocin Oint [Bactroban Oint] 1 applic TP TID 02/16/18 [History] atorvaSTATin [Lipitor] 20 mg PO DAILY 02/16/18 [History] Cephalexin 500 mg PO BID #28 capsule 02/18/18 [Rx] Patient Handouts: Cephalexin tablets or capsules, Toe Amputation, Care After Referrals: Sean Allred DPM [Physician] - 03/11/18 - Patient Data Vitals - Most Recent: Last Vital Signs Temp 37.2 C 02/18/18 08:00 Pulse 73 02/18/18 08:00 Resp 16 02/18/18 08:00 BP 143/69 H 02/18/18 08:52 Pulse Ox 96 02/18/18 08:00 Weight - Most Recent: 110.847 kg I&O - Last 24 hours: Intake & Output 07/04/18 07/05/18 07/05/18 22:59 06:59 14:59 Intake Total 800 Output Total 1155 Balance -355 Lab Results - Last 24 hrs: Laboratory Results - last 24 hr 02/18/18 02/18/18 02/18/18 Range/Units 07:00 08:45 11:52 POC Glucose 225 H 185 H (60-110) mg/dL Vancomycin Trough 11.9 H (5.0-10.0) ug/mL Med Orders - Current: Current Medications Discontinued Medications Acetaminophen (Tylenol) 650 mg PO Q4H PRN PRN Reason: Pain (Mild 1-3)/fever Aspirin (Halfprin) 81 mg PO DAILY [facility] Last Admin: 02/18/18 08:52 Dose: 81 mg Atorvastatin Calcium (Lipitor) 20 mg PO DAILY [facility] Last Admin: 02/18/18 09:14 Dose: Not Given Bupivacaine HCl (Sensorcaine-Mpf 0.5%) Confirm Administered Dose 20 ml .ROUTE .STK-MED ONE Stop: 02/17/18 12:33 Cefazolin Sodium (Ancef) Confirm Administered Dose 1 gm .ROUTE .STK-MED ONE Stop: 02/17/18 12:33 Cephalexin (Keflex) 500 mg PO BID [facility] Fentanyl (Sublimaze) Confirm Administered Dose 100 mcg .ROUTE .STK-MED ONE Stop: 02/17/18 12:42 Gabapentin (Neurontin) 800 mg PO QID [facility] Last Admin: 02/17/18 12:00 Dose: Not Given Gabapentin (Neurontin) 800 mg PO QID [facility] Last Admin: 02/18/18 11:58 Dose: 800 mg Heparin Sodium (Porcine) (Heparin Sodium) 5,000 units SUBCUT Q8H [facility] Last Admin: 02/17/18 14:54 Dose: Not Given Heparin Sodium (Porcine) (Heparin Sodium) 5,000 units SUBCUT Q8H [facility] Last Admin: 02/18/18 13:24 Dose: 5,000 units Vancomycin HCl 1.5 gm/ Sodium (Chloride) 500 mls @ 333 mls/hr IV Q12H [facility] Last Admin: 02/16/18 21:04 Dose: Not Given Vancomycin HCl 1 gm/Vancomycin HCl 500 mg/ Sodium Chloride 500 mls @ 333 mls/ hr IV Q12H [facility] Last Admin: 02/16/18 21:53 Dose: Not Given Vancomycin HCl 1 gm/Vancomycin HCl 500 mg/ Sodium Chloride 500 mls @ 333 mls/ hr IV Q12H [facility] Last Admin: 02/18/18 08:46 Dose: 333 mls/hr Sodium Chloride (Normal Saline) 1,000 mls @ 100 mls/hr IV ASDIRECTED [facility] Last Admin: 02/18/18 07:25 Dose: 100 mls/hr Insulin Aspart (Novolog) 0 unit SUBCUT TIDAC [facility]; Protocol Insulin Aspart (Novolog) 0 unit SUBCUT Q6H [facility]; Protocol Last Admin: 02/17/18 17:53 Dose: 2 units Insulin Aspart (Novolog) 0 unit SUBCUT TIDAC [facility]; Protocol Last Admin: 02/18/18 11:59 Dose: 2 units Insulin Detemir (Levemir) 11 unit SUBCUT DAILY [facility] Last Admin: 02/18/18 08:55 Dose: 11 units Lidocaine HCl (Xylocaine 1%) Confirm Administered Dose 40 ml .ROUTE .STK-MED ONE Stop: 02/17/18 12:39 Losartan Potassium (Cozaar) 50 mg PO DAILY [facility] Last Admin: 02/18/18 08:52 Dose: 50 mg Midazolam HCl (Versed 1 Mg/Ml) Confirm Administered Dose 2 mg .ROUTE .STK-MED ONE Stop: 02/17/18 12:42 Pneumococcal Polyvalent Vaccine (Pneumovax 23) 0.5 ml IM .ONCE ONE Stop: 02/16/18 17:39 Last Admin: 02/16/18 22:01 Dose: 0.5 ml Propofol (Diprivan 20 Ml) Confirm Administered Dose 200 mg .ROUTE .STK-MED ONE Stop: 02/17/18 12:42 Vancomycin HCl (Pharmacy To Dose - Vancomycin) 1 dose .XX ASDIRECTED [facility]
== END 2018-02-18 15:30 | disposition home or self-care (01) | DRG 617 ==
LOC: MW.MS 17:04
PROVIDERS: ADMIT Internal Medicine; ATTEND Internal Medicine
PROC: 0Y6S0Z0 Detachment at Left 2nd Toe, Complete, Open Approach (ICD-10-PCS; principal; 2018-02-16)
DX: E11.621 Type 2 diabetes mellitus with foot ulcer (principal); M86.9 Osteomyelitis, unspecified; E11.52 Type 2 diabetes mellitus with diabetic peripheral angiopathy with gangrene; I96 Gangrene, not elsewhere classified; L97.528 Non-pressure chronic ulcer of other part of left foot with other specified severity; I10 Essential (primary) hypertension; E11.40 Type 2 diabetes mellitus with diabetic neuropathy, unspecified; Z79.4 Long term (current) use of insulin; Z87.891 Personal history of nicotine dependence; Z89.511 Acquired absence of right leg below knee; Z79.899 Other long term (current) drug therapy; F32.9 Major depressive disorder, single episode, unspecified
CPT/HCPCS: 36415; 71045; 71045-26; 73630-26-LT; 73630-LT; 80048; 80053; 80202; 82962; 85025; 87070; 87075; 87205; 90732; 93005; 93880; 93880-26; A9270-GY; J0690; J1644; J1815-GY ×2; J2250; J2704; J3010; J3370; J7040